=== PATIENT | male | born 1990 | race Caucasian/White ===

== ENCOUNTER 2019-05-12 11:58 | Emergency (ER) | payer BC, OTHER ==
[2019-05-12 12:20] VITALS: BP 128/87; PULSE 78; TEMP 98.7; BMI 25.0
--- NOTE | 2019-05-12 12:28 | PDOC ---
History of Present Illness - General Chief Complaint: Eye Problem Stated Complaint: LEFT EYE PROBLEM 1 WEEK Time Seen by Provider: 05/12/19 12:18 - History of Present Illness Initial Comments: 05/12/19 12:36 Chief complaint: Pain and swelling left upper eyelid HPI: Symptoms for approximately 1 week. Using antibiotic ointment, oral doxycycline, and warm compresses. Prescribed a new eyedrop yesterday, but he has not used it yet. No spontaneous drainage Review of systems: No significant pain, blurred or double vision, headache, injection, or drainage. Past medical history: Healthy male, no significant medical or surgical problems past or present, no medications other than current eyedrops Social/family history reviewed and noncontributory Physical exam: Alert and oriented well-developed well-nourished no acute distress cheerful and cooperative Afebrile, vital signs normal Entirely normal physical exam except for large hordeolum left upper eyelid. There is swelling, tenderness, and erythema, but no spontaneous drainage. There is no conjunctival injection. Pupil is round and reactive to light and accommodation. Fundus is benign. EOMs full without diplopia. Visual lopez intact to confrontation. No lower lid or cheek swelling or tenderness. No anterior cervical nodes palpable. Impression: Stye, relatively unresponsive to topical antibiotics, as well as systemic doxycycline. Plan: Referred to [facility] today for definitive treatment, I&D. Past History - Past Medical History Allergies/Adverse Reactions: Allergies Allergy/AdvReac Type Severity Reaction Status Date / Time cephalexin monohydrate Allergy Intermediate Verified 05/12/19 12:01 [From Keflex] Home Medications: Ambulatory Orders Doxycycline Monohydrate [Monodox] 100 mg PO Q12H 05/12/19 COPD: No Other medical history: DENIES - Psycho Social/Smoking Cessation Hx Smoking History: Current some day smoker Have you smoked in the past 12 months: Yes Number of Cigarettes Smoked Daily: 1 Information on smoking cessation initiated: No 'Breaking Loose' booklet given: 05/27/14 Hx Alcohol Use: Yes (BEER AND WINE) Drug/Substance Use Hx: No *Physical Exam - Vital Signs Last Vital Signs Temp Pulse Resp BP Pulse Ox 98.7 F 78 14 128/87 100 05/12/19 12:00 05/12/19 12:00 05/12/19 12:00 05/12/19 12:00 05/12/19 12:00 Medical Decision Making - Medical Decision Making 05/12/19 12:40 Dr. Anderson office contacted by phone. They will see the patient this afternoon for consultation and treatment. Patient is given address, directions, and phone number and will go there immediately. Discharge - Discharge Information Problems reviewed: Yes Clinical Impression/Diagnosis: Hordeolum externum left upper eyelid Condition: Stable Disposition: HOME - Admission No - Follow up/Referral Referrals: Anson Anderson MD [Staff Physician] - 05/12/19 - Patient Discharge Instructions Patient Printed Discharge Instructions: DI for Hordeolum Additional Instructions: Continue warm compresses and antibiotic drops as directed. See [facility] today to consider surgical drainage. The office of Dr. Asnon Anderson has been contacted by phone. They will see you now in the office for further treatment. Address and phone number are provided. - Post Discharge Activity
== END 2019-05-12 12:36 | disposition home or self-care (01) ==
LOC: FER 11:58
DX: H00.014 Hordeolum externum left upper eyelid (principal); Z88.8 Allergy status to other drugs, medicaments and biological substances; F17.210 Nicotine dependence, cigarettes, uncomplicated
CPT/HCPCS: 99281-25

== ENCOUNTER 2019-06-28 17:40 | Emergency (ER) | payer BC, OTHER ==
[2019-06-28 17:46] VITALS: BP 125/83; PULSE 98; TEMP 98.6; BMI 24.3
--- NOTE | 2019-06-28 17:58 | PDOC ---
History of Present Illness - General Chief Complaint: Injury Stated Complaint: LEFT SECOND TOE INJURY Time Seen by Provider: 06/28/19 17:57 - History of Present Illness Initial Comments: 06/29/19 08:58 Chief complaint: Injury to left second toe HPI: Approximately 1 week ago, while at work, the patient dropped a heavy object on his left foot. Pain and swelling in the left second toe has persisted. He has been completely ambulatory and working with the injury, with pain and swelling persistent. There was no abrasion laceration or puncture wound. Review of systems: No other injuries were sustained. Remainder of systems review negative Past medical history: Healthy male, no medical or surgical problems, no medications other than Advil for his present pain Family history/social history reviewed and noncontributory Physical exam: Alert and oriented well-developed well-nourished no acute distress cheerful and cooperative Afebrile, vital signs normal Left foot: Mild swelling and tenderness of the proximal phalanx, second toe. No deformity, either angular or rotational. Intact capillary refill. No distal sensory deficits. Limited flexion due to swelling and pain. No other visible or palpable injuries or deformities to the remainder of the foot ankle calf knee thigh or hip. Impression: Rule out fracture second toe Plan: X-ray reveals an oblique nondisplaced fracture of the metaphysis of the proximal phalanx. There is a mild degree of impaction. Toes were vesna taped for comfort and patient was instructed to follow-up with orthopedist. Rest ice and elevation were recommended, but the patient states that he will continue to work as he has been doing for the last week, spending most of the day on his feet, but when he gets home will rest ice and elevate the foot and follow-up as directed with orthopedist. Continue Advil. Follow-up as directed. Adequately ambulatory at discharge. Past History - Past Medical History Allergies/Adverse Reactions: Allergies Allergy/AdvReac Type Severity Reaction Status Date / Time cephalexin monohydrate Allergy Intermediate Verified 06/28/19 17:42 [From Keflex] Home Medications: Ambulatory Orders Ibuprofen [Advil -] 600 mg PO ONCE 06/28/19 COPD: No - Psycho Social/Smoking Cessation Hx Smoking History: Current every day smoker Have you smoked in the past 12 months: Yes Number of Cigarettes Smoked Daily: 2 Information on smoking cessation initiated: Yes 'Breaking Loose' booklet given: 05/27/14 Hx Alcohol Use: (occasional) Drug/Substance Use Hx: No *Physical Exam - Vital Signs Last Vital Signs Temp Pulse Resp BP Pulse Ox 98.6 F 98 H 18 125/83 97 06/28/19 17:40 06/28/19 17:40 06/28/19 17:40 06/28/19 17:40 06/28/19 17:40 Discharge - Discharge Information Problems reviewed: Yes Clinical Impression/Diagnosis: Fracture, toe Qualifiers: Encounter type: initial encounter Toe: lesser toe Fracture type: closed Phalanx : proximal Fracture alignment: nondisplaced Laterality: left Qualified Code(s): S92.515A - Nondisplaced fracture of proximal phalanx of left lesser toe(s), initial encounter for closed fracture Condition: Improved Disposition: HOME - Admission No - Follow up/Referral - Patient Discharge Instructions Patient Printed Discharge Instructions: DI for Toe Fracture Additional Instructions: Rest, ice, elevate, Advil. See orthopedist for further evaluation and treatment as directed. - Post Discharge Activity Work/Back to School Note: Back to Work
== END 2019-06-28 18:55 | disposition home or self-care (01) ==
LOC: FER 17:40
PROC: 2W3VXYZ Immobilization of Left Toe using Other Device (ICD-10-PCS; principal; 2019-06-28)
DX: S92.515A Nondisplaced fracture of proximal phalanx of left lesser toe(s), initial encounter for closed fracture (principal); W20.8XXA Other cause of strike by thrown, projected or falling object, initial encounter; Y93.89 Activity, other specified; Y92.89 Other specified places as the place of occurrence of the external cause; Y99.0 Civilian activity done for income or pay; F17.210 Nicotine dependence, cigarettes, uncomplicated
CPT/HCPCS: 73660-TC-LT-FY; 99283-25

== ENCOUNTER 2022-08-29 01:54 | Emergency (ER) | payer OTHER ==
[2022-08-29 02:05] VITALS: BP 117/82; PULSE 72; RESP 17; TEMP 98.1; BMI 25.7
[2022-08-29] MEDS ORDERED: LIDOCAINE 5% TOPICAL PATCH TP ONE (02:30)
[2022-08-29] MEDS ORDERED: IBUPROFEN 600 MG TABLET (FP) PO ONE ×2 (02:30→02:33)
[2022-08-29] MEDS ORDERED: LIDOCAINE 5% TOPICAL PATCH ONE (02:33)
[2022-08-29] MEDS ORDERED: LIDOCAINE PATCH REMOVAL MC SCH (22:00)
== END 2022-08-29 02:39 | disposition home or self-care (01) ==
LOC: JER 01:54
DX: M54.50 Low back pain, unspecified (principal)
CPT/HCPCS: 99283-25